=== PATIENT | female | born 1930 | race Caucasian/White ===

== ENCOUNTER 2016-05-25 15:53 | Inpatient (IN) | payer MEDICARE ==
[~2016-05-25] VITALS: Ht 165.1 cm; Wt 69.7 kg
[~2016-05-25 15:53] MED LIST: AMLO2.5T PO; ASCO-294 PO; ASPI-973 PO; ATEN50TA PO; HYDR-4003 PO; VIT1CAPS8 PO
[2016-05-25 15:58] VITALS: BP 123/54; PULSE 108; RESP 20; O2SAT 98
--- NOTE | 2016-05-25 16:33 | DRSVH ---
PROCEDURE: X-RAY CHEST ONE VIEW, PORTABLE ([id number]) INDICATIONS: cp TECHNIQUE: One view of the chest was acquired. COMPARISON: 05/24/[address] chest FINDINGS: Surgical changes and devices: Permanent pacemaker with 2 right atrial and 2 RV leads. Lungs and pleura: Small left pleural effusions, no pneumothorax. Lungs are clear. Mediastinum: Mediastinal contours appear normal. Moderate hiatal hernia. Heart size is normal. Aorti c calcifications. Bones and chest wall: No suspicious bony lesions. Minimally displaced left rib fractures on CT are n ot visualized. Overlying soft tissues appear unremarkable, and no subcutaneous emphysema.. IMPRESSION: 1. Small left pleural effusion, probably related to left-sided rib fractures. No pneumothorax seen. 2. Moderate hiatal hernia. 3. Status post pacemaker. Dictated by: Gerardo Leigh M.D. on 05/25/2016 at 16:26 Approved by: Gerardo Leigh M.D. on 05/25/2016 at 16:31
[2016-05-25 17:03] LABS: BASOPHILS % (AUTO) 0 % (0-3); EOSINOPHILS % (AUTO) 1 % (0-5); MONOCYTES % (AUTO) 10 % (4-12); Mean Corpuscular Hemoglobin 18.5 pg (27.0-35.0); Mean Corpuscular Volume 70.4 fL (81-100); NEUTROPHILS % (AUTO) 77 % (40-74); Platelet Count 415 bil/L (150-400)
[2016-05-25 17:07] LABS: TROPONIN T < 0.010 ug/L (0.0-0.011)
[2016-05-25 17:15] LABS: Magnesium 2.2 mg/dL (1.6-2.6)
--- NOTE | 2016-05-25 17:30 | ED.REPORT ---
HPI-General Illness Date of Service May 25, 2016 ED Provider: Pamela Ferrer MD This is an 85 year old female with a history of atrial fibrillation, GI bleed, hypertension presenting to the emergency department due to progressively worsening shortness of breath that began one year ago. Associated symptoms include chest pain, malaise, and lightheadedness and dizziness with minimal exertion. Pt was called today from Dr. Billings's office, informed of low blood count, and was told to visit the ED. She reports a few episodes of black stools but did not have bowel movement today. Denies diarrhea, constipation, vomiting, nausea, headache, or abdominal pain at this time. Pt taking 325 mg ASA daily Nursing Notes Stated Complaint: CHEST PAIN, SHORTNESS OF BREATH Chief Complaint: Chest Pain Nursing Notes Reviewed: Yes Allergies: Coded Allergies: hydrochlorothiazide (Verified Allergy, Unknown, 05/25/16) carvedilol (Verified Adverse Reaction, Severe, pt unable to recall r-n, ) warfarin (Verified Adverse Reaction, Severe, burning rash, 05/24/15) Scheduled Ascorbate Calcium (Vitamin C) 500 Mg Tablet 500 MG PO DAILY Aspirin (Aspirin) 325 Mg Tablet 325 MG PO DAILY Atenolol (Atenolol) 50 Mg Tablet 50 MG PO BID Flecainide Acetate (Flecainide Acetate) 50 Mg Tablet 50 MG PO BID Vit C/Vit E/Lutein/Min/Floyd-3 (Ocuvite Softgel) 1 Each Capsule 1 EACH PO DAILY Scheduled PRN Calcium Carb/Mag Hydrox/Simeth (Antacid Multi-Sym Tab Chew) 1 Each Tab.chew 1 EACH PO DAILY PRN PRN For Dyspepsia or Heartburn General Time Seen by MD: 17:18 Chief Complaint Chest pain Hx Obtained From: Patient Arrived By: Ambulance Sudden in Onset?: Yes Onset Occurred: More than a week ago... (>6 months) Symptom Duration: Since onset Severity: Current: Mild Pertinent Negative: Pt denies other symptoms Recent Healthcare: No recent hospitalization, Recent doctor visit Similar Sx Previous: No Past Medical History Past Medical History Notes: Upper endoscopy in 03/2011 was negative Past Medical History GI bleed back October 2010 w/ EGDgastritis believed to be secondary to aspirin. Chronic paroxysmal atrial fibrillation, has a pacemaker, DDR, that was placed in October 2010. She is not on Coumadin because she is intolerant to it. On ASA therapy hiatal hernia. h/o Tachybrady syndrome Reports: Hypertension Past Surgical History Pacemaker Status post lead replacement of atrial and ventricular leads 11/2014- DEVICE: The existing pacemaker was a [employer] model UT9709. The new atrial lead was a [employer] model 2088TC/46, serial #[id number] Smoking History Never Smoker Ambulatory Status Independent Review of Systems no recent iron or peptobismol (has taken maalox) Full Review of Systems Constitutional: Denies: Chills, Fever Respiratory: Reports: Shortness of breath Cardiovascular: Reports: Chest pain GI: Denies: Abdominal pain, Constipation, Diarrhea, Nausea, Vomiting Female: Denies: Dysuria Neurologic: Reports: Dizziness, Lightheaded, Denies: Headache Complete sys rev & neg: except as marked. Physical Exam Vital Signs Vital Signs Date Time Temp Pulse Resp B/P Pulse Ox O2 Delivery O2 Flow Rate FiO2 05/25/16 15:58 37 108 20 123/54 98 Room Air Initial VS: Reviewed Head / Eyes: Atraumatic, Normocephalic, PERRL ENT: Mucous membranes moist, Conjunctiva normal, No scleral icterus Neck: Supple, Non-tender, Full range of motion Abdomen / GI: Soft, Non-tender, No guarding, No rebound, No distention Extremities: Vascular intact, Neuro intact, No swelling, No tenderness Neurologic: Alert, Oriented, Nonfocal Psychiatric: Mood/affect normal, Behavior normal, Normal thought content General/Constitutional: Awake, Alert Appearance / Presentation: Positive: Pale Respiratory / Chest: Breath sounds = bilat, No wheezing Sats drop to 82% while talking even on 3 liters O2 Cardiovascular: Regular rhythm, Heart sounds NL, No gallop, No murmurs Heart Rate / Rhythm: Positive: Tachycardia Rectum / Perineum: No gross blood, No hemorrhoids weakly guaiac positive with brown stool Interpretation & Diagnostics Lab Results Interpretation Result Diagram: 05/25/16 1600 05/25/16 1600 Test 05/25/16 16:00 White Blood Count 8.0th/mm3 (3.8-10.1) Red Blood Count 2.87mil/mm3 (3.90-5.20) Hemoglobin 5.3g/dL (12.0-15.6) Hematocrit 20.2% (35.0-46.0) Mean Corpuscular Volume 70.4fL (81-100) Mean Corpuscular Hemoglobin 18.5pg (27.0-35.0) Mean Corpuscular Hemoglobin Concent 26.2% (32.0-37.0) Red Cell Distribution Width 20.0% (12.3-15.4) Platelet Count 415bil/L (150-400) Neutrophils (%) (Auto) 77% (40-74) Lymphocytes (%) (Auto) 12% (14-46) Monocytes (%) (Auto) 10% (4-12) Eosinophils (%) (Auto) 1% (0-5) Basophils (%) (Auto) 0% (0-3) Hold Purple Top Tube Received (Received) Hold Blue Top Tube Received (Received) Sodium Level 137mEq/L (134-144) Potassium Level 4.2mEq/L (3.5-5.2) Chloride Level 101mEq/L (97-108) Carbon Dioxide Level 21mmol/L (18-29) Blood Urea Nitrogen 25mg/dL (8-27) Creatinine 1.26mg/dL (0.57-1.00) Estimat Glomerular Filtration Rate 58mL/min (>59) Glucose Level 167mg/dL (60-99) Calcium Level 8.6mg/dL (8.5-10.1) Magnesium Level 2.2mg/dL (1.6-2.6) Total Bilirubin 0.9mg/dL (0.0-1.2) Aspartate Amino Transf (AST/SGOT) 22U/L (0-50) Alanine Aminotransferase (ALT/SGPT) 11U/L (0-32) Alkaline Phosphatase 44U/L (25-165) Troponin T < 0.010ug/L (0.0-0.011) Total Protein 6.3g/dL (6.4-8.4) Albumin 4.0g/dL (3.4-5.0) Hold [place] Top Tube Received (Received) Hold Fallon Top Tube Received (Received) ECG Interpretation Time: 16:40 Interpreted by: ED physician Abnormal Rate: Rate, 100 (with intraventricular conductoin delay and left axis deviation) Rhythm / Conduction: Atrial fibrillation (repolarization abnormailities. NO acute ischemia) X-Ray Chest Interpretation Chest Xray Interpretation: IMPRESSION: 1. Small left pleural effusion, probably related to left-sided rib fractures. No pneumothorax seen. 2. Moderate hiatal hernia. 3. Status post pacemaker. Dictated by: Gerardo Leigh M.D. on 05/25/2016 at 16:26 Approved by: Gerardo Leigh M.D. on 05/25/2016 at 16:31 Re-Eval/Medical Decision Consultation #1: Referral / Consult Name: Ahmet Schneider MD Consulted With: Hospitalist Call Returned at: 18:00 Chief Internal Auditor: Accepts admit Consultation #2: Call Returned at: 18:12 Note: Spoke with LUIS FERNANDO Whitney. Will consult in the am. Counseled Regarding: Diagnosis, Lab results, Need for follow-up, Need for admission Discharge & Departure Primary Impression: Anemia due to blood loss, acute Additional Impressions: Dyspnea Dyspnea type: unspecified Qualified Code: R06.00 - Dyspnea, unspecified Lower extremity edema Laterality: bilateral Qualified Code: R60.0 - Localized edema Disposition: ADMITTED TO HOSPITAL Discharge Condition All VS Reviewed: Yes Condition: Stable Referrals: Brittani Billings MD (PCP) Scribe Attestation Portions of this note were transcribed by Beverley Gallego. I, Dr. Ferrer personally performed the history, physical exam and medical decision-making; I reviewed and confirmed the accuracy of the information in the transcribed note. Signed by: richard Marks. 05/25/2016, 18:00. Pamela Ferrer MD May 25, 2016 17:30 BEVERLEY GALLEGO May 25, 2016 17:37
[2016-05-25] MEDS ORDERED: Pantoprazole 4 mg/mL 10 mL Inj IVPUSH ONE (18:00)
[2016-05-25] MEDS ORDERED: FLC50T PO (19:11)
[2016-05-25] MEDS ORDERED: ASPI325T32 PO (19:11)
[2016-05-25] MEDS ORDERED: CALC-866 PO (19:11)
[2016-05-25] MEDS ORDERED: Ondansetron 2 mg/mL 2 mL Inj IVPUSH PRN (19:55)
[2016-05-25] MEDS ORDERED: Alum-Mag Hydrox-Simeth 30 mL Suspension PO PRN (19:55)
[2016-05-25 19:57] VITALS: BP 139/63; PULSE 106; RESP 20
[2016-05-25 20:29] VITALS: PULSE 102
[2016-05-25] MEDS ORDERED: Furosemide 10 mg/mL 4 mL Inj IVPUSH ONE (20:30)
--- NOTE | 2016-05-25 20:42 | PCM.HPMED ---
Subjective Date of Service May 25, 2016 Primary Provider: Admitting Physician: Ahmet Schneider MD Primary Care Physician: Brittani Billings MD Attending Physician: Ahmet Schneider MD History of Present Illness: This is an 85 year who was sent out to the emergency room by primary care doctor due to severe anemia. Patient has been having shortness of breath for many medication and feeling weak. She also reported melena or less per day or so. Lab test done at her primary care doctor show severe anemia. In the ED her hemoglobin was 5.8. She has a past medical history of hypertension, atrial fibrillation, hypertension. , Denies diarrhea, constipation, vomiting, nausea, headache, or abdominal pain at this time. 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 She was put on 325 mg of Aspirin daily recently Review of Systems: Review of system is pertinent for shortness of breath, weakness, melena as described above in history of present illness otherwise a comprehensive review x 12 points is negative Allergies Coded Allergies: hydrochlorothiazide (Verified Allergy, Unknown, 05/25/16) carvedilol (Verified Adverse Reaction, Severe, pt unable to recall r-n, ) warfarin (Verified Adverse Reaction, Severe, burning rash, 05/24/15) Home Medications Scheduled Ascorbate Calcium (Vitamin C) 500 Mg Tablet 500 MG PO DAILY Aspirin (Aspirin) 325 Mg Tablet 325 MG PO DAILY Atenolol (Atenolol) 50 Mg Tablet 50 MG PO BID Flecainide Acetate (Flecainide Acetate) 50 Mg Tablet 50 MG PO BID Vit C/Vit E/Lutein/Min/Polaris-3 (Ocuvite Softgel) 1 Each Capsule 1 EACH PO DAILY Scheduled PRN Calcium Carb/Mag Hydrox/Simeth (Antacid Multi-Sym Tab Chew) 1 Each Tab.chew 1 EACH PO DAILY PRN PRN For Dyspepsia or Heartburn PMH Hypertension, Atrial fibrillation, Tachybradycardia syndrome, GI bleed Surgical History Pacemaker Status post lead replacement of atrial and ventricular leads 11/2014- DEVICE: The existing pacemaker was a [employer] model TB8234. The new atrial lead was a [employer] model 2088TC/46, serial #[id number] Family History Family history reviewed and is noncontributory to the present illness Social History Hx Alcohol Use: No Hx Substance Use: No Hx Tobacco Use: No Smoking Status: Never Smoker Living Arrangement: with Family (patient lives with her son) Exam Vital Signs Vital Sign - Last Date Time Temp Pulse Resp B/P Pulse Ox O2 Delivery O2 Flow Rate FiO2 05/25/16 19:57 37.1 106 20 139/63 05/25/16 15:58 98 Room Air Exam General/Constitutional : Well-nourished elderly female, in bed comfortably. Very pale HEENT: Atraumatic, Normocephalic, PERRL, sclera is pale and anicteric Mouth : Moist oropharyngeal mucosa, no oral thrush Neck: Supple, Non-tender, Full range of motion Chest: No deformity, normal respiratory effort Lungs: Clear bilaterally, local cortical, no wheezing Heart: S1, S2 irregular rate , no gallop Abdomen / GI: Soft, Non-tender, No guarding, No rebound, No distention Extremities: Vascular intact, Neuro intact, 3+ edema bilaterally Neurologic: Alert, Oriented, Nonfocal Psychiatric: Mood/affect normal, Behavior normal, Normal thought content Lab and Diagnostics Result Diagram: 05/25/16 1600 05/25/16 1600 X-Rays, CTs and MRIs Chest x-ray reviewed : 1. Small left pleural effusion, probably related to left-sided rib fractures. No pneumothorax seen. 2. Moderate hiatal hernia. 3. Status post pacemak Assessment & Plan 1. Acute blood loss anemia 2. Symptomatic anemia 3. GI bleed 4. LE edema Chronic medical issues 1. GI bleed back October 2010 ( EGD : Gastritis due to ASA) 2. Chronic paroxysmal atrial fibrillation, has a pacemaker ( No anticoagulation due to GI bleed) 3 . h/o Tachybrady syndrome 4. Hypertension Admit inpatient for acute GI bleed and symptomatic anemia. Gastroenterological consulted by ER physician. Transfuse 3 units of PRBC. Monitor H&H closely. Bleeding seems to be contained at this time Lasix 40 mg IV after second unit. Start PPI IV. May need repeat endoscopy ( at GI discretion ). Her symptom of melena is likely secondary gastritis again. She was back on daily aspirin recently Patient is full code . Resuscitation Status: CPR: Attempt Resuscitation Time spent 75 minutes Ahmet Schneider MD May 25, 2016 20:42
--- NOTE | 2016-05-25 22:30 | NUR ---
Admit: Pt arrived to room 3010 from ED via stretcher; son at bedside. AOx3, 2L O2, PRBC infusing. Pt c/o mild SOB, no pain or chest pain. Admit complete. Admit RN completed home medication list. Pt offered information on [employer] Directive; pt refused.
[2016-05-25 22:36] VITALS: BP 145/74; PULSE 110; RESP 18; O2SAT 98
[2016-05-25 23:06] VITALS: BP 156/85; PULSE 103; RESP 20
[2016-05-25 23:22] VITALS: BP 154/82; PULSE 101; RESP 18; O2SAT 100
[2016-05-26] VITALS (8 sets, daily range): BP systolic 115–159; BP diastolic 73–96; PULSE 75–117; RESP 17–18; O2SAT 95–99
[2016-05-26 01:45] LABS: BASOPHILS % (AUTO) 0.8 % (0-3); EOSINOPHILS % (AUTO) 1.4 % (0-5); MONOCYTES % (AUTO) 15.1 % (4-12); Mean Corpuscular Volume 74.9 fL (81-100); NEUTROPHILS % (AUTO) 63.6 % (40-74); Platelet Count 294 bil/L (150-400)
--- NOTE | 2016-05-26 06:30 | NUR ---
Uneventful Night: Pt received 2 units PRBC, night MD ordered a CBC after second unit with orders to hold further transfusions if hemiglobin over 7. Hemiglobin resulted at 7.9. Pt has had off/on mild SOB, 2L O2 to RA throughout the night. Pt up most all night, walking in hallway s and room. Pt denied pain and chest pain. Pleasant and cooperative with care.
[2016-05-26 06:40] LABS: BASOPHILS % (AUTO) 0.4 % (0-3); EOSINOPHILS % (AUTO) 1.3 % (0-5); MONOCYTES % (AUTO) 10.7 % (4-12); Mean Corpuscular Hemoglobin 21.7 pg (27.0-35.0); Mean Corpuscular Volume 74.9 fL (81-100); NEUTROPHILS % (AUTO) 72.6 % (40-74); Platelet Count 306 bil/L (150-400)
[2016-05-26] MEDS ORDERED: Pantoprazole 4 mg/mL 10 mL Inj IVPUSH SCH (07:30)
--- NOTE | 2016-05-26 10:42 | PCM.CHPMED ---
Subjective Date of Service: May 26, 2016 Provider requesting consult: Ahmet Schneider MD Primary Physician: Admitting Physician: Ahmet Schneider MD Primary Care Physician: Brittani Billings MD Attending Physician: Ahmet Schneider MD Chief Complaint: Chief Complaint: REASON FOR GI CONSULT: Acute anemia with associated melena in patient with ASA use History of Present Illness: GASTROENTEROLOGY CONSULT NOTE Ms. Verdin is a pleasant 85 year old female with history of HTN, atrial fibrillation on ASA therapy, and history of ASA-induced gastritis, that [facility] for sx of shortness of breath and weakness. Initial laboratory results yielded a Hb 5.3, Hct 20.2. GI was consulted to further evaluate her etiology of anemia. She is currently s/p 2U pRBC. Patient states that she currently feels well, and that her initial symptoms have resolved. She shares that her initial symptoms included significant shortness of breath, bilateral LE edema, and weakness. She states that she was unable to walk across the room at time of admission. She states that she had an episode of similar with syncope approximately one year ago, but she is unsure what the etiology was. She has been on ASA 325mg therapy for 'years,' and says that she is 'allergic' to coumadin and develops diffuse, extreme urticaria. She denies any history of GI bleeding, denies any history of EGD or colonoscopy, and denies any history of anemia. She is unaware of any adverse effects ASA has had on her. Denies any personal or family history of GI issues, including IBD, celiac, colon cancer, or ulcerations. 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 Denies any recent nausea, vomiting, dysphagia, constipation, diarrhea, abdominal pain, cough, episodes of syncope, acute vision changes, melena, BRBPR. Does admit to one dark stool prior to admission. States dark stools have resolved. Last BM this morning, reported as brown and firm without evidence of blood or tarry consistency. She states that she does not have a PCP, as they retired, and her only physician involved with her care is Dr. Billings, cardiology. History of endoscopy per [facility]: - 2010: EGD- Nonobstructing Schatzki's ring at GE junction, large incarcerated hiatal hernia without evidence gastric ulcerations; mild diffuse gastritis noted ; Biopsies NEGATIVE for H pylori - 2010: Colonoscopy- moderate diverticulosis - 2012: EGD- no source bleeding identified GI was consulted to evaluate etiology of anemia. Review of Systems: Complete ROS obtained; pertinent positives and negatives as noted in HPI PMH Past Medical History Patient recalls history of atrial fibrillation and tachybrady s/p pacer. Does not recall history of EGD/gastritis Obtained from chart review: 1. GI bleed back October 2010 ( EGD : Gastritis due to ASA) 2. Chronic paroxysmal atrial fibrillation, has a pacemaker ( No anticoagulation due to GI bleed) 3 . h/o Tachybrady syndrome 4. Hypertension Surgical History Pacemaker Status post lead replacement of atrial and ventricular leads 11/2014- DEVICE: The existing pacemaker was a [employer] model JQ1312. The new atrial lead was a [employer] model 2088TC/46, serial #[id number] Allergies: Coded Allergies: hydrochlorothiazide (Verified Allergy, Unknown, 05/26/16) carvedilol (Verified Adverse Reaction, Severe, pt unable to recall r-n, ) warfarin (Verified Adverse Reaction, Severe, burning rash, 05/26/16) Social History Hx Alcohol Use: NoHx Substance Use: NoHx Tobacco Use: No Smoking Status: Never Smoker Living Arrangement: with Family (patient lives with her son) Exam Vital Signs Vital Sign - Last Date Time Temp Pulse Resp B/P Pulse Ox O2 Delivery O2 Flow Rate FiO2 05/26/16 05:06 36.7 75 18 159/79 99 Room Air Intake and Output 05/25/16 05/25/16 05/26/16 Cumulative From/Thru 15:00 23:00 07:00 05/25/16 15:58 - 05/26/16 06:51 Intake Total 450 ml 1203 ml 1653 ml Output Total 625 ml 625 ml Balance 450 ml 578 ml 1028 ml Intake Oral 0 ml 0 ml IV Total 50 ml 853 ml 903 ml Packed Cells 400 ml 350 ml 750 ml Output Urine Total 625 ml 625 ml General: Alert, Oriented X3, Cooperative, No Acute Distress Eyes: EOMI, Scleral Anicteric Nose: Mucous Membr Moist/Dupree Mouth: Mucous Membr Moist/Dupree Chest & Lungs: Auscultation (clear bilaterally with adequate air flow all lewis), No adventitious breath sounds Cardiovascular: Other (irregularly irregular) Abdomen: Non-tender, Non-distended, Benign, Soft Musculoskeletal: Normal Range of Motion, Other (able to transition from seated to standing without assistance; mobilized within room well) Extremities: Warm, Edema (moderate- bilateral lower extremities from dorsum to ankle) Neurological: Grossly Neurologically Intact, Normal Speech (without slur), Strength Normal 4/4 ext Additional Information: Psych: Appropriate mood, affect, and responses to questioning; limited insight and judgment as patient cannot recall some details of medical history Lab and Diagnostics Result Diagram: 05/26/1660905/26/16609 Assessment & Plan Assessment GASTROENTEROLOGY CONSULT NOTE Ms. Verdin is a pleasant 85 year old female with history of HTN, atrial fibrillation on ASA therapy, and history of ASA-induced gastritis, that [facility] her [facility] for sx of shortness of breath and weakness. Initial laboratory results yielded a Hb 5.3, Hct 20.2. GI was consulted to further evaluate her etiology of anemia. Assessments - Acute anemia secondary to suspected GI bleed s/p 2U pRBC - History of ASA use Plan - Continue pantoprazole 40mg IV BIDAC - Avoidance of NSAIDs, ASA - EGD and colonoscopy tentative 05/27 - Clear diet at this time - GoLytely tonight - NPO midnight - Will need to evaluate anticoagulation options/discontinuance with risks and benefits discussion; will defer to primary team and/or cardiology Thank you for this consult, we will happily follow along at this time. Please do not hesitate to contact us with any questions or concerns. Total time: 60 minutes Problems: Resuscitation Status: CPR: Attempt Resuscitation Attending Statement agree with outstanding assessment and plan above. Joyce Pappas DO May 26, 2016 08:50 Ahmet Mendoza MD May 26, 2016 14:43
--- NOTE | 2016-05-26 11:17 | NUR ---
Social Work-initial assessment: Data:See initial assessment. Pt is a 85 y/o female who was admitted on 05/25/16 for acute anemia per H&P. Pt's insurance is [employer] and PCP is Brittani Billings MD. EMR Reviewed. Pt's readmission score is 1. HARSH met with pt and son Efe [phone] to discuss discharge planning, SW role explained. Pt is alert and oriented x3. Pt resides at home with her son in [place] where she remains independent with ADLs. Pt uses a fww at baseline and occasionally drives. Pt has no HH or SNF history. Pt has no secretary administrative assistant care or VA benefits. SW discussed DPOA/ advanced directive, pt confirms that she has not done this and is not interested in completing at this time. Per RN notes, pt has been up independent in the hallways. Son confirms he is home with pt all the time. Pt has questions and concerns about procedures getting coverage pt insurance. HARSH spoke with UR RN who confirms pt's insurance should cover, SW updated pt and son, both agreeable. Pt's son to provide transport home at discharge. SW provided phone number and plan on white board in room. No anticipated discharge needs. SW will continue to follow if needs arise. Assessment:Pt who is independent at baseline. Plan:Pt to discharge home with son when medically stable via POV. No anticipated discharge needs. SW will continue to follow if needs arise. BLU Rios Addendum: 05/26/16 at 1122 by SHRAVAN CARRILLO Amended: Links added.
--- NOTE | 2016-05-26 15:17 | PCM.PNMED ---
Subjective Date of Service May 26, 2016 Subjective Patient has no new complaints today. She has been ambulating in the hallway. She states that she does not have any blood in her stool today. She has no fever, no chills, no sweats and no abdominal pain. Exam Vital Signs Vital Sign - Last Date Time Temp Pulse Resp B/P Pulse Ox O2 Delivery O2 Flow Rate FiO2 05/26/16 13:25 36.9 114 18 131/73 95 Room Air 05/26/16 05:06 Intake and Output 05/25/16 05/25/16 05/26/16 Cumulative From/Thru 15:00 23:00 07:00 05/25/16 15:58 - 05/26/16 06:51 Intake Total 450 ml 1203 ml 1653 ml Output Total 625 ml 625 ml Balance 450 ml 578 ml 1028 ml Intake Oral 0 ml 0 ml IV Total 50 ml 853 ml 903 ml Packed Cells 400 ml 350 ml 750 ml Output Urine Total 625 ml 625 ml Exam General: Patient is in no apparent distress. He is very anxious as to whether her insurance will cover her hospitalization and any procedures associated with it. HEENT: Head is atraumatic and normocephalic. Eyes: Pupils are equally round and reactive to light and accommodation. Extraocular muscles are intact. Sclera are white, anicteric. Subconjunctival mucosa is pale. Ears and nose are unremarkable. Oropharynx: There is no mucosal lesions, there is no thrush, there is no pharyngitis. There is some mucosal pallor Neck: Is supple, there are no nodes, or masses or tenderness. Chest: Is clear to auscultation and percussion. There are no rales, rhonchi, wheezes or rubs. Heart: Rate, rhythm is regular. There is no murmur, rub or gallop. Abdomen: Good bowel sounds are present. Abdomen is soft, nontender, no organomegaly or masses were appreciated. Extremities: Are symmetrical and well perfused. There is no edema, there is no cellulitis, no rash. Neurologic: There are no focal neurological deficits. Cranial nerves II through XII are intact. There are no sensory or motor deficits. However, in discussing patient's insurance coverage we went around in circles and she did not seem to comprehend that Medicare and/or supplement [facility] would be providing coverage for her hospitalization due to the severity of her illness. Psychiatric: Patients mood is calm and shows no sign of agitation. Genital: Deferred Rectal: Deferred Lab and Diagnostics Result Diagram: 05/26/16 0610 05/26/1610 X-Rays, CTs and MRIs PROCEDURE: X-RAY CHEST ONE VIEW, PORTABLE ([id number]) INDICATIONS: cp TECHNIQUE: One view of the chest was acquired. COMPARISON: 05/24/[address] chest FINDINGS: Surgical changes and devices: Permanent pacemaker with 2 right atrial and 2 RV leads. Lungs and pleura: Small left pleural effusions, no pneumothorax. Lungs are clear. Mediastinum: Mediastinal contours appear normal. Moderate hiatal hernia. Heart size is normal. Aortic calcifications. Bones and chest wall: No suspicious bony lesions. Minimally displaced left rib fractures on CT are not visualized. Overlying soft tissues appear unremarkable, and no subcutaneous emphysema.. IMPRESSION: 1. Small left pleural effusion, probably related to left-sided rib fractures. No pneumothorax seen. 2. Moderate hiatal hernia. 3. Status post pacemaker. Dictated by: Gerardo Leigh M.D. on 05/25/2016 at 16:26 Approved by: Gerardo Leigh M.D. on 05/25/2016 at 16:31 Assessment & Plan This is an 85 year old female with a history of atrial fibrillation, GI bleed, hypertension presenting to the emergency department due to progressively worsening shortness of breath that began one year ago. Associated symptoms include chest pain, malaise, and lightheadedness and dizziness with minimal exertion. Pt was called to [facility] from Dr. Billings's office, informed of low blood count, and was told to visit the ED. the patient reported a few episodes of black stools but did not have bowel movement the day of admission. The patient denied diarrhea, constipation, vomiting, nausea, headache, or abdominal pain at this time. Pt has been taking 325 mg ASA daily. The patient was admitted to the hospital service for further evaluation and treatment. # Acute blood loss anemia secondary to GI bleeding which had become symptomatic - Appreciate GI consult by Dr. Mendoza - Plan is for patient to have an endoscopy and colonoscopy in a.m. I have discussed this with patient at length and came back to the room to discuss it with the patient and her son Efe. Efe is in agreement that the patient should proceed with these studies. - Patient has been started on Protonix will increase to 40 mg IV twice a day as recommended by Dr. Mendoza - She was transfused 2 units of packed red blood cells - We will continue monitor blood counts closely. - Patient has a history of a GI bleed back in October 2010 ( EGD : Gastritis due to ASA) - History of endoscopy per [facility]: - 2010: EGD- Nonobstructing Schatzki's ring at GE junction, large incarcerated hiatal hernia without evidence gastric ulcerations; mild diffuse gastritis noted; Biopsies NEGATIVE for H pylori - 2010: Colonoscopy- moderate diverticulosis - 2012: EGD- no source bleeding identified # Chronic paroxysmal atrial fibrillation - Patient has a pacemaker placed she states that she has 4 wires now is to previous wires were causing electrical shocks and she had placement of 2 new wires. - Patient has a history of GI bleeding and was not on any anticoagulation until recently when she was placed on aspirin. - History of tachybradycardia syndrome - We will hold all anticoagulation at this time due to GI bleed # Hypertension - Controlled at present time off amlodipine discontinued yesterday due to low blood pressure. - We will continue to monitor closely at this time # Lower extremity edema - This is likely due to third spacing from low intravascular oncotic pressure due to anemia - However, will check echocardiogram to rule out evidence of congestive heart failure - Lasix has been ordered 1 yesterday after second unit of blood was transfused. Will into new to monitor Disposition: Patient will likely be hospitalized for another 48 hours for evaluation and management of the above problems. Pain Evaluation: Adequate Pain Control GI Prophylaxis: Proton Pump Inhibitor VTE Prophylaxis: Other (The patient is ambulating regularly and anticoagulation is contraindicated this time due to the GI bleeding.) Resuscitation Status: CPR: Attempt Resuscitation Anthony Shields MD May 26, 2016 15:17 GI Prophylaxis: Proton Pump Inhibitor VTE Prophylaxis: Other (The patient is ambulating regularly and anticoagulation is contraindicated this time due to the GI bleeding.) Resuscitation Status: CPR: Attempt Resuscitation Anthony Shields MD May 26, 2016 15:17
[2016-05-26] MEDS ORDERED: PEG/Electrolytes 4,000 mL Solution PO ONE (16:00)
--- NOTE | 2016-05-26 16:53 | NUR ---
GI Suspected GI bleed, GI consult, plan for upper/lower scopes in AM, diet clears/no reds, bowel prep tonight, care notes on procedures given, consent in chart.
[2016-05-26] MEDS: Pantoprazole 4 mg/mL 10 mL Inj IVPUSH SCH (21:12)
--- NOTE | 2016-05-26 22:32 | NUR ---
Pain/sleep Patient reporting pain from "ribs that I broke a year ago when I fell, I guess they have never healed". Patient also very restless, walking hallway with FWW, "trying to wear myself out so I can sleep".
[2016-05-27] VITALS (10 sets, daily range): BP systolic 106–158; BP diastolic 57–88; PULSE 109–136; RESP 14–20; O2SAT 96–100
[2016-05-27] MEDS ORDERED: Lactated Ringer's 1,000 ML IV ONE (06:00)
[2016-05-27 06:33] LABS: BASOPHILS % (AUTO) 0.3 % (0-3); EOSINOPHILS % (AUTO) 0.9 % (0-5); MONOCYTES % (AUTO) 9.9 % (4-12); Mean Corpuscular Hemoglobin 21.5 pg (27.0-35.0); Mean Corpuscular Volume 74.9 fL (81-100); NEUTROPHILS % (AUTO) 76.5 % (40-74); Platelet Count 287 bil/L (150-400)
[2016-05-27 06:52] LABS: Magnesium 1.9 mg/dL (1.6-2.6)
[2016-05-27 08:42] LABS: APPEARANCE,URINE HAZY (CLEAR,HAZY); COLOR,URINE YELLOW (YELLOW)
[2016-05-27 08:43] LABS: OCCULT BLOOD,URINE NEGATIVE (NEGATIVE); UROBILINOGEN,URINE NORMAL (NORMAL)
--- NOTE | 2016-05-27 09:07 | NUR ---
JESUSITA: Patient refused to sign JESUSITA, she informed me she has read all the papers she has a copy and that she already has a signature on it. She is not comfortable with signing a lot of things.
[2016-05-27] MEDS: Pantoprazole 4 mg/mL 10 mL Inj IVPUSH SCH (09:45)
--- NOTE | 2016-05-27 12:36 | DRSVH ---
[facility] [address] [place] [address] Echocardiogram Report Name: NANCY CASSIDY Date : 05/27/2016 Height: 65 in Hospital Exam Location: [facility] Weight: 154 lb Gender: Other BSA: 1.8 m2 : 1930 Age: 85 yrs BP: 139/88 mmHg Reason For Study: Edema Ordering Physician: Performed By: [facility] Interpretation Summary The left ventricle is normal in size.The ejection fraction is estimated to be 55-60%. The right ventricle is mild to moderately dilated. There is a pacemaker lead in the right ventricle. Right ventricular systolic function is mild to moderately reduced. There is moderate tricuspid regurgitation. The right ventricular systolic pressure is estimated at 66 mmHg assuming a right atrial pressure of 15 mm Hg. There is severe pulmonary hypertension. The patient was in atrial fibrillation with heart rates between 78-133 bpm during the exam. Procedure: A two-dimensional transthoracic echocardiogram with color flow and Doppler was performed. The study quality was technically adequate. Comparison is made with the echocardiogram of 10/13/09. The patient was in atrial fibrillation with heart rates between 78-133 bpm during the exam. Left Ventricle: The left ventricle is normal in size. Proximal septal thickening is noted. There is no echo evidence for significant left ventricular outflow tract obstruction. There is no thrombus. The ejection fraction is estimated to be 55-60%. There is mid inferoseptal wall hypokinesis. There is mid anteroseptal wall hypokinesis. Diastolic function could not be accurately assessed due to atrial fibrillation. Right Ventricle: The right ventricle is mild to moderately dilated. There is a pacemaker lead in the right ventricle. The right ventricle appears to be hypertrophied. Right ventricular systolic function is mild to moderately reduced. Atria: The left atrium is severely dilated. The right atrium is moderately dilated. There is a catheter/pacemaker lead seen in the right atrium. The interatrial septum is intact with no evidence for an atrial septal defect. The thickening of interatrial septum suggests lipomatous hypertrophy. Mitral Valve: There is mild mitral annular calcification. The mitral valve leaflets are slightly calcified. There is trace mitral regurgitation. Aortic Valve: The aortic valve is trileaflet. The aortic valve opens well. The aortic valve is slightly calcified. There is no aortic valve stenosis. No aortic regurgitation is present. Tricuspid Valve: The tricuspid annulus is dilated. There is moderate tricuspid regurgitation. The right ventricular systolic pressure is estimated at 66 mmHg assuming a right atrial pressure of 15 mm Hg. There is severe pulmonary hypertension. Pulmonic Valve: The pulmonic valve is not well seen, but is grossly normal. There is mild pulmonic regurgitation. Great Vessels: The aortic root is normal size. The dimensions of the ascending aorta are normal. The aortic arch is normal in size. The pulmonary is not well visualized. The IVC is dilated (diameter is greater than 2.1 cm) and it collapses less than 50% with a sniff. This suggests a high right atrial pressure of 15 mm Hg. Pericardium/ Pleura There is no pericardial effusion. There is no pleural effusion. MMode/2D Measurements & Calculations LVIDd: 4.5 cm LA dimension: 3.9 cm RA long axis Ao root diam LVIDs: 2.8 cm FS: 36.9 % LA A2 area: 28.5 cm RA area asc Aorta Diam EPSS: 0.71 cm LA A4 area: 30.9 cm IVSd: 0.83 cm LA length (vol) : 16.4 cm Ao Arch Diam (Prox LVPWd: 0.87 cm RA vol Trans): 2.6 cm LA vol: 117.2 ml : 41.8 ml LA vol index RA : 23.6 mm2 IVC diam: 2.3 cm LV zamora. diameter/BSA LV sys. diameter/BSA RVD1 (basal) RVD2 (mid): 5.2 cm (cm/m^2): 2.5 (cm/m^2): 1.6 Doppler Measurements & Calculations Ao V2 max Med Peak E' [place] TR max michoacano MV V2 mean : 160.4 cm/sec : 356.5 cm/sec : 88.1 cm/sec Ao max PG Lat Peak E' [place] TR max PG MV mean PG : 10.3 mmHg : 50.9 mmHg Ao mean PG PA V2 max MV V2 VTI: 24.2 cm : 5.4 mmHg : 90.7 cm/sec PA mean PG PA Accel Time Ao V2 mean PA V2 mean : 107.7 cm/sec : 57.7 cm/sec Ao V2 VTI: 26.9 cm Reading Physician:JOYCE
[2016-05-27] MEDS ORDERED: MeTOProlol 1 mg/mL 5 mL Inj ONE (13:24)
[2016-05-27] MEDS ORDERED: Ketamine 10 mg/mL 20 mL Inj ONE (13:24)
--- NOTE | 2016-05-27 13:48 | NUR ---
Endo Bowel prep last night, NPO this AM. Pt escorted to endo via courtney with son at bedside. Addendum: 05/27/16 at 1606 by CHIQUITA CRUZ RN Return from endo. A&O. Tolerating liquids. No c/o pain.
[2016-05-27] MEDS ORDERED: Ondansetron 2 mg/mL 2 mL Inj IVPUSH PRN (14:00)
[2016-05-27] MEDS ORDERED: Lactated Ringer's 1,000 ML IV SCH (14:00)
[2016-05-27] MEDS ORDERED: MetoCLOpramide 5 mg/mL 2 mL Inj IVPUSH PRN (14:00)
--- NOTE | 2016-05-27 14:00 | PCM.HPANE ---
Patient Data Date of Service: May 27, 2016 Surgeon Admitting Provider:Ahmet Schneider MD Attending Provider:Ahmet Schneider MD Primary Care Physician:Brittani Billings MD Other Provider: Reason for Visit Acute Anemia, Lower Extremity Edema Ht/WT & BMI Height (Feet): 5 Height (Inches): 5.00 Weight (Kilograms): 69.700 Body Mass Index 25.60 Allergies Coded Allergies: hydrochlorothiazide (Verified Allergy, Unknown, 05/26/16) carvedilol (Verified Adverse Reaction, Severe, pt unable to recall r-n, ) warfarin (Verified Adverse Reaction, Severe, burning rash, 05/26/16) Past Anesthesia History Anesthesia History: Denies:: Abnormal Airway, Difficult Intubation Diabetes History Hx Diabetes?: Yes MRSA MRSA: No Medications Reported Medications Aspirin 325 Mg [id number] Mg PO DAILY #1 BOTTLE 05/25/16 Calcium Carb/Mag Hydrox/Simeth (Antacid Multi-Sym Tab Chew)1 Each Tab.chew1 Each PO DAILY PRN For Dyspepsia or Heartburn 05/25/16 Flecainide Acetate 50 Mg [id number] Mg PO BID 30 Days 05/25/16 Ascorbate Calcium (Vitamin C)500 Mg [id number] Mg PO DAILY 05/24/15 Vit C/Vit E/Lutein/Min/[place]-3 (Ocuvite Softgel)1 Each Capsule1 Each PO DAILY 11/14/14 Atenolol 50 Mg [id number] Mg PO BID 11/14/14 Discontinued Reported Medications Aspirin 81 Mg [id number] Mg PO DAILY 11/14/14 Amlodipine 2.5 Mg Tablet2.5 Mg PO BID 11/14/14 Discontinued Scripts Hydrocodone-Acetaminophen 5-325 mg 1 Each Tablet1 Tablet PO Q4H PRN For Pain # 30 TABLET Ref 0 Prov:Valeriano Crane MD 05/26/15 History History of ENT Problems?: Yes HEENT History: Positive for:: Cataracts (bilateral surgery) Denies:: Abnormal Airway Difficult Intubation Dysphagia Glaucoma Hearing Problem Sinus Problem Hx of Heart Problems?: Yes Cardiovascular History: Positive for:: Atrial Fibrillation Cardiac Surgery (pacemaker) Hypertension Irregular Heartbeat (hx atrial fibrillation, bradycardia,tachy-nikko syndrome) Pacemaker Valvular Heart Disease (severe pulm htn) Denies:: Chest Pain Congestive Heart Failure (denies) Edema Heart Murmur Hx of Respiratory Problem?: No Respiratory History: Positive for:: Dyspnea (current due to HH) Denies:: Asthma COPD Chest Surgery Emphysema Hemoptysis Pneumonia Tuberculosis Hx Neurologic Problems?: No Neurological History: Denies:: Alzheimer's Disease CVA Dementia Dizziness Headaches Parkinson's Disease Seizures Hx of GI Problems?: Yes Gastrointestinal History: Positive for:: Gastroesphageal Reflux Gastrointestinal Bleeding (r/t gastritis) Heartburn Hiatal Hernia Rectal Bleeding (current) Denies:: Diverticulitis Hepatitis Hx of Problems?: Yes Genitourinary History: Positive for:: Urinary Tract Infection Denies:: HX of Hemodialysis Kidney Stones HX of Peritoneal Dialysis: No Female Hx: Denies:: Currently Endometriosis Pelvic Inflammatory Problems with Breasts? Hx Musculoskeletal Problems?: Yes Musculoskeletal History: Positive for:: Back Injury (occasional) Denies:: Joint Replacement Hx of Psycho/Social Problems?: No Psycho Social History: Denies:: Anxiety Bipolar Disorder Hx Depression Suicide Attempt Hx Surgeries?: No (pacer) Hx Any Other Health Problems?: Yes Other History: Positive for:: Hospitalization Denies:: Cancer Thyroid Disease History Blood Transfusions: Positive for:: Accept Blood Products? Blood Transfusions Denies:: Blood Transfuse Reaction Hx Diabetes: Yes Hx Alcohol Use: NoHx Substance Use: No Smoking Status: Never Smoker Have You Smoked inLast 12 mo: No Stop/Bang Treated for Sleep Apnea?: No S-Snoring: Do You Snore Loudly: No T-Tired: feel tired, fatigued: Yes O-Obsered: Observed not breath: No P-Blood Pressure: treated: Yes B- Body Mass Index > 35 kg/m2: No A- Age over 50: Yes N- Neck Large Circumference: No G- Gender Male: No GERRI Total Score: 2 Risk Assessment Category Category 1A: Patient has history of documented sleep apnea, and HAS NOT received any narcotic, sedative or anesthesia administration during this stay. Category 1B: Patient has history of documented sleep apnea, and HAS received any narcotic , sedative or anesthesia administration during this stay Category 2: Patient has SUSPECTED Obstructive Sleep Apnea, and HAS received any narcotic , sedative or anesthesia administration during this stay. Category 3: Patient has SUSPECTED Obstructive Sleep Apnea and HAS NOT received narcotic, sedative or anesthesia administration during this stay. Category 4: Outpatient in Procedural Areas with known sleep apnea or who screen positive for High Risk via the STOP/BANG questionnaire. Exam Exam Vital Signs Vital Signs Date Time Temp Pulse Resp B/P Pulse Ox O2 Delivery O2 Flow Rate FiO2 05/27/16 11:04 122 05/27/16 10:18 36.4 124 20 124/76 98 Room Air 05/27/16 06:16 36.6 110 18 139/88 99 Room Air General Appearance: Alert, Oriented X3, Cooperative HEENT/AIRWAY: MP 3, Neck Movement (OK), Mouth Opening (Small) Lungs: Clear to Percussion, Normal Air Movement, Diminished Heart: Normal S1, Normal S2, Other (tachycardic) Meds/Labs/Diagnostics Admission Meds Current Medications Polyethylene Glycol/ Electrolytes 4000 ml 4,000 ml ONCE ONCE PO Last administered on 05/26/16 16:03; Start 05/26/16 at 16:00; Stop 05/26/16 at 16:12 ; Status DC Lactated Ringer's (Lr) 1,000 ml @ 10 mls/hr Q24H ONCE IV Last administered on 05/27/16 06:19; Start 05/27/16 at 06:00; Stop 05/28/16 at 05:59 Pantoprazole (Protonix Inj) 40 mg BID IVPUSH Last administered on 05/27/16 09: 45; Start 05/26/16 at 20:30 Labs Test 05/25/16 16:00 05/27/16 06:03 05/27/16 07:13 Hold Purple Top Tube Received (Received) Hold Blue Top Tube Received (Received) Troponin T < 0.010ug/L (0.0-0.011) Hold [place] Top Tube Received (Received) Hold [place] Top Tube Received (Received) White Blood Count 8.0th/mm3 (3.8-10.1) Red Blood Count 3.67mil/mm3 (3.90-5.20) Hemoglobin 7.9g/dL (12.0-15.6) Hematocrit 27.5% (35.0-46.0) Mean Corpuscular Volume 74.9fL (81-100) Mean Corpuscular Hemoglobin 21.5pg (27.0-35.0) Mean Corpuscular Hemoglobin Concent 28.7% (32.0-37.0) Red Cell Distribution Width 21.8% (12.3-15.4) Platelet Count 287bil/L (150-400) Neutrophils (%) (Auto) 76.5% (40-74) Lymphocytes (%) (Auto) 12.3% (14-46) Monocytes (%) (Auto) 9.9% (4-12) Eosinophils (%) (Auto) 0.9% (0-5) Basophils (%) (Auto) 0.3% (0-3) Hematology Comments Sodium Level 141mEq/L (134-144) Potassium Level 4.3mEq/L (3.5-5.2) Chloride Level 102mEq/L (97-108) Carbon Dioxide Level 23mmol/L (18-29) Blood Urea Nitrogen 21mg/dL (8-27) Creatinine 1.08mg/dL (0.57-1.00) Estimat Glomerular Filtration Rate 69mL/min (>59) Glucose Level 108mg/dL (60-99) Calcium Level 9.1mg/dL (8.5-10.1) Magnesium Level 1.9mg/dL (1.6-2.6) Total Bilirubin 2.3mg/dL (0.0-1.2) Aspartate Amino Transf (AST/SGOT) 20U/L (0-50) Alanine Aminotransferase (ALT/SGPT) 12U/L (0-32) Alkaline Phosphatase 45U/L (25-165) Pro-B-Type Natriuretic Peptide 3364pg/mL (0-738) Total Protein 6.3g/dL (6.4-8.4) Albumin 4.0g/dL (3.4-5.0) Triglycerides Level 73mg/dL (0-149) Cholesterol Level 107mg/dL (100-199) LDL Cholesterol, Calculated 48.400mg/dL (0-99) VLDL Cholesterol 14.600mg/dL HDL Cholesterol 44mg/dL (>39) Cholesterol/HDL Ratio 2.43 (0.0-4.4) Urine Color Yellow (YELLOW) Urine Appearance Hazy (CLEAR,HAZY) Urine pH 5.0 (5.0-8.0) Urine Specific [place] 1.030 (1.003-1.035) Urine Protein Negativemg/dL (NEG,TRACE) Urine Glucose (UA) Negativemg/dL (NEGATIVE) Urine Ketones Tracemg/dL (NEGATIVE) Urine Occult Blood Negative (NEGATIVE) Urine Nitrite Negative (NEGATIVE) Urine Bilirubin Negative (NEGATIVE) Urine Urobilinogen Normalmg/dL (NORMAL) Urine Leukocyte Esterase Negative (NEGATIVE) Urine RBC 0-2/hpf (0-2) Urine WBC 0-5/hpf (0-5) Urine Epithelial Cells Occasional/hpf (NONE-MOD) Urine Crystals None seen (NONE SEEN) Urine Bacteria Moderate/hpf (NONE-FEW) Urine Hyaline Casts Occasional/lpf (NONE) Urine Granular Casts None seen (NONE SEEN) Urine Waxy Casts None seen (NONE SEEN) Urine Red Blood Cell Casts None seen (NONE SEEN) Urine White Blood Cell Casts None seen (NONE SEEN) Urine Mucus None seen (None Seen) Urine Trichomonas None seen (NONE SEEN) Urine Yeast None (NONE SEEN) Urinalysis Comment None Diagnositcs Echo today with severe pulmonary HTN. Pacemaker recs received. Plan Impression Patient chart reviewed, patient interviewed and anesthestic plan with risks, benefits, and alternatives discussed, and informed consent obtained. NPO Status: > 8 hours ASA Physical Status: ASA3 Severe Disease Anesthetic Plan: MAC Bene/Risks/Altern/Consents: Yes HP Complete Prior to Induction: Yes Other Pt with severe pulmonary hypertension and poorly rate controlled A.Fib. GI bleed. PARQ done with patient regarding risk of sedation, understands and agrees to proceed. Jovany Paulino MD May 27, 2016 13:44
--- NOTE | 2016-05-27 14:52 | PCM.ANEP1 ---
Post Anesthesia Phase 1 PACU Phase 1 Assessment Date of Service: May 27, 2016 Vital Signs Vital Signs Date Time Temp Pulse Resp B/P Pulse Ox O2 Delivery O2 Flow Rate FiO2 05/27/16 14:41 113 14 142/81 99 Nasal Cannula 4 05/27/16 13:51 36.6 122 16 158/84 100 Room Air 05/27/16 11:04 122 05/27/16 10:18 36.4 124 20 124/76 98 Room Air Anesthetic Administered: MAC Level of Alertness: Awake, talking SMITH's with Equal Strength: Yes Pain: No Pain Scale Score: 0 Nausea or Vomiting: No Oxygen Delivery: Nasal Cannula Lungs: Clear to Percussion, Normal Air Movement, Diminished Jovany Paulino MD May 27, 2016 14:52
--- NOTE | 2016-05-27 14:54 | PCM.ANEP2 ---
Post Anesthesia Evaluation ASA/CMS Post Anesthesia Date of Service: May 27, 2016 VS in Patient's Normal Range?: Yes Resp Stable; Airway Patent?: Yes CV Function & Hydration Stable: Yes Mental Status Recovered?: Yes Pain control Satisfactory?: Yes N/V Control Satisfactory?: Yes Jovany Paulino MD May 27, 2016 14:54
--- NOTE | 2016-05-27 15:58 | ENDO ---
[address] [address] ENDOSCOPY PROCEDURE PATIENT: NANCY CASSIDY : 1930 MR#: [id number] ADMIT: 05/25/2016 JOB ID: [id number] DATE OF SERVICE: 05/27/2016 TYPE OF OPERATION: 1. Esophagogastroduodenoscopy with biopsy. 2. Colonoscopy. PREOPERATIVE DIAGNOSIS(ES): 1. Anemia. 2. Rule out gastrointestinal bleed. POSTOPERATIVE DIAGNOSIS(ES): 1. Large hiatal hernia. No Andrey lesions seen. 2. Moderate sigmoid diverticulosis. 3. Small internal hemorrhoids. ANESTHESIA: Monitored anesthesia care. COMPLICATIONS: None. BLOOD LOSS: Minimal. DESCRIPTION OF PROCEDURE: After risks and benefits explained to the patient, informed consent was obtained. After anesthesia administered, upper endoscope was then inserted in the mouth, intubating through the esophagus, stomach, second portion of duodenum. Mucosa carefully examined. After the procedure was done, the scope withdrawn and the procedure terminated. A colonoscope was then inserted from rectum to cecum. Mucosa carefully examined. Prep of the patient was fair. After the procedure was done, the scope withdrawn and the procedure terminated. FINDINGS: Upon inspection of the esophagus, the esophagus was normal without masses, ulcers, or lesions. Z-line located 40 cm from incisors. Upon entering the stomach, the stomach was normal without masses, ulcers, or lesions. Retroflexion showed a large hiatal hernia. Duodenal bulb, first and second portions normal. Biopsies taken at the duodenum. No Andrey lesions were seen on retroflexion. Upon inspection of the anus, no masses, hemorrhoids, ulcers, or fissures that were seen. Throughout the entire examination, there was moderate sigmoid diverticulosis. No evidence of bleeding or polyps were seen. Retroflexion showed small internal hemorrhoids. IMPRESSION: 1. Small internal hemorrhoids. 2. Sigmoid diverticulosis. 3. Large hiatal hernia. RECOMMENDATIONS: 1. Await pathology results. 2. Outpatient small bowel series. 3. Okay to start clear liquid diet. Advance as tolerated. 4. Okay to discharge home from a GI standpoint.
--- NOTE | 2016-05-27 20:10 | PCM.PNMED ---
Subjective Date of Service May 27, 2016 Subjective Patient has no new complaints. She is anxiously awaiting her endoscopy and colonoscopy procedures this afternoon. She has no fever, no sweats no chills no nausea no vomiting no diarrhea no medication no melena or hematemesis that she is aware of. Patient has no other new complaints. Exam Vital Signs Vital Sign - Last Date Time Temp Pulse Resp B/P Pulse Ox O2 Delivery O2 Flow Rate FiO2 05/27/16 18:26 36.8 136 20 129/71 97 Room Air 05/27/16 14:41 4 Intake and Output 05/26/16 05/26/16 05/27/16 Cumulative From/Thru 15:00 23:00 07:00 05/25/16 15:58 - 05/27/16 06:28 Intake Total 800 ml 0 ml 2453 ml Output Total 150 ml 775 ml Balance 650 ml 0 ml 1678 ml Intake Oral 800 ml 0 ml 800 ml IV Total 903 ml Packed Cells 750 ml Output Urine Total 150 ml 775 ml # Voids 1 0 1 # Bowel Movements 1 0 1 Exam General: Patient is in no apparent distress. He is very anxious as to whether her insurance will cover her hospitalization and any procedures associated with it. HEENT: Head is atraumatic and normocephalic. Eyes: Pupils are equally round and reactive to light and accommodation. Extraocular muscles are intact. Sclera are white, anicteric. Subconjunctival mucosa is pale. Ears and nose are unremarkable. Oropharynx: There is no mucosal lesions, there is no thrush, there is no pharyngitis. There is some mucosal pallor Neck: Is supple, there are no nodes, or masses or tenderness. Chest: Is clear to auscultation and percussion. There are no rales, rhonchi, wheezes or rubs. Heart: Rate, rhythm is regular. There is no murmur, rub or gallop. Abdomen: Good bowel sounds are present. Abdomen is soft, nontender, no organomegaly or masses were appreciated. Extremities: Are symmetrical and well perfused. There is no edema, there is no cellulitis, no rash. Neurologic: There are no focal neurological deficits. Cranial nerves II through XII are intact. There are no sensory or motor deficits. Psychiatric: Patients mood is calm and shows no sign of agitation. Genital: Deferred Rectal: Deferred Lab and Diagnostics Result Diagram: 05/27/1660205/27/16602 Microbiology Name: NANCY CASSIDY Kaya Age/Sex: 85/F Attend Dr: Ahmet Schneider MD Acct: [id number] Unit: [id number] Status: ADM IN [place] [facility] [place]05/25/16 Disch: Specimen: [id number] Collected: 05/26/16 Status: COMP Req#: [id number] Received: 05/26/16 Source: STOOL Sp Desc : Subm Dr: Anthony Shields MD Ordered: WFOBT Comments: Collected by Nurse/Unit? Y/N Y Comment: x1 suspected GI bleed Procedure Result Verified Site Microbiology [facility] OCCULT BLOOD IMMUNOCHEM Final 05/26/16 OCCULT BLD IMMUNOCHEMICAL NEGATIVE REFERENCE INTERVAL NEGATIVE X-Rays, CTs and MRIs PROCEDURE: X-RAY CHEST ONE VIEW, PORTABLE ([id number]) INDICATIONS: cp TECHNIQUE: One view of the chest was acquired. COMPARISON: 05/24/[address] chest FINDINGS: Surgical changes and devices: Permanent pacemaker with 2 right atrial and 2 RV leads. Lungs and pleura: Small left pleural effusions, no pneumothorax. Lungs are clear. Mediastinum: Mediastinal contours appear normal. Moderate hiatal hernia. Heart size is normal. Aortic calcifications. Bones and chest wall: No suspicious bony lesions. Minimally displaced left rib fractures on CT are not visualized. Overlying soft tissues appear unremarkable, and no subcutaneous emphysema.. IMPRESSION: 1. Small left pleural effusion, probably related to left-sided rib fractures. No pneumothorax seen. 2. Moderate hiatal hernia. 3. Status post pacemaker. Dictated by: Gerardo Leigh M.D. on 05/25/2016 at 16:26 Approved by: Gerardo Leigh M.D. on 05/25/2016 at 16:31 Cardiac Echo Impressions Echocardiogram Report Name: NANCY CASSIDY Date : 05/27/2016 Height: 65 in Hospital Exam Location: [facility] Weight: 154 lb Gender: Other BSA: 1.8 m2 : 1930 Age: 85 yrs BP: 139/88 mmHg Reason For Study: Edema Ordering Physician: Performed By: [facility] Interpretation Summary The left ventricle is normal in size.The ejection fraction is estimated to be 55-60%. The right ventricle is mild to moderately dilated. There is a pacemaker lead in the right ventricle. Right ventricular systolic function is mild to moderately reduced. There is moderate tricuspid regurgitation. The right ventricular systolic pressure is estimated at 66 mmHg assuming a right atrial pressure of 15 mm Hg. There is severe pulmonary hypertension. The patient was in atrial fibrillation with heart rates between 78-133 bpm during the exam Assessment & Plan This is an 85 year old female with a history of atrial fibrillation, GI bleed, hypertension presenting to the emergency department due to progressively worsening shortness of breath that began one year ago. Associated symptoms include chest pain, malaise, and lightheadedness and dizziness with minimal exertion. Pt was called to [facility] from Dr. Billings's office, informed of low blood count, and was told to visit the ED. the patient reported a few episodes of black stools but did not have bowel movement the day of admission. The patient denied diarrhea, constipation, vomiting, nausea, headache, or abdominal pain at this time. Pt has been taking 325 mg ASA daily. The patient was admitted to the hospital service for further evaluation and treatment. # Acute blood loss anemia secondary to GI bleeding which had become symptomatic - Appreciate GI consult by Dr. Mendoza - Plan is for patient to have an endoscopy and colonoscopy in a.m. I have discussed this with patient at length and came back to the room to discuss it with the patient and her son Efe. Efe is in agreement that the patient should proceed with these studies. - Patient has been started on Protonix will increase to 40 mg IV twice a day as recommended by Dr. Mendoza - She was transfused 2 units of packed red blood cells - We will continue monitor blood counts closely. - Patient has a history of a GI bleed back in October 2010 ( EGD : Gastritis due to ASA) - History of endoscopy per [facility]: - 2010: EGD- Nonobstructing Schatzki's ring at GE junction, large incarcerated hiatal hernia without evidence gastric ulcerations; mild diffuse gastritis noted; Biopsies NEGATIVE for H pylori - 2010: Colonoscopy- moderate diverticulosis - 2012: EGD- no source bleeding identified # Chronic paroxysmal atrial fibrillation - Patient has a pacemaker placed she states that she has 4 wires now is to previous wires were causing electrical shocks and she had placement of 2 new wires. - Patient has a history of GI bleeding and was not on any anticoagulation until recently when she was placed on aspirin. - History of tachybradycardia syndrome - We will hold all anticoagulation at this time due to GI bleed # Hypertension - Controlled at present time off amlodipine discontinued yesterday due to low blood pressure. - We will continue to monitor closely at this time # Lower extremity edema - This is likely due to third spacing from low intravascular oncotic pressure due to anemia - However, will check echocardiogram to rule out evidence of congestive heart failure - Lasix has been ordered 1 yesterday after second unit of blood was transfused. Will into new to monitor Disposition: Patient will likely be hospitalized for another 48 hours for evaluation and management of the above problems. Pain Evaluation: Adequate Pain Control GI Prophylaxis: Proton Pump Inhibitor VTE Prophylaxis: Other (The patient is ambulating regularly and anticoagulation is contraindicated this time due to the GI bleeding.) Resuscitation Status: CPR: Attempt Resuscitation Anthony Shields MD May 27, 2016 20:10
[2016-05-28 01:58] VITALS: BP 127/72; PULSE 120; RESP 20; O2SAT 99
[2016-05-28 06:08] VITALS: PULSE 107
[2016-05-28 06:26] VITALS: BP 123/65; PULSE 130; RESP 18; O2SAT 97
[2016-05-28 07:18] LABS: BASOPHILS % (AUTO) 0.5 % (0-3); EOSINOPHILS % (AUTO) 1.8 % (0-5); MONOCYTES % (AUTO) 12.6 % (4-12); Mean Corpuscular Hemoglobin 21.9 pg (27.0-35.0); Mean Corpuscular Volume 75.6 fL (81-100); Platelet Count 278 bil/L (150-400)
[2016-05-28] MEDS ORDERED: Pantoprazole 20 mg ER24 Tablet PO SCH (07:30)
[2016-05-28 08:00] VITALS: PULSE 109
[2016-05-28 09:04] VITALS: BP 85/55; PULSE 129; RESP 20; O2SAT 98
[2016-05-28] MEDS ORDERED: 0.9% Sodium Chloride 500 ML IV ONE (09:30)
--- NOTE | 2016-05-28 11:03 | PCM.DIMED ---
Discharge Instructions Date of Service May 28, 2016 Dates of Hospitalization May 25, 2016 at 18:59 Discharge Diagnosis Discharge Diagnosis Acute symptomatic blood loss anemia Diet Heart Healthy Activity No restrictions (Patient may resume usual activities gradually as tolerated.) Call your provider Fever or Chills, Shortness of breath, Bleeding, Chest pain, Vomitting, Excessive diarrhea, Weakness (unilateral) Patient Instructions Follow-up Provider: Brittani Billings MD Follow-up with PCP in: 2 weeks Provider: Ahmet Mendoza MD Follow-up in: 2 weeks (Folllow up for biopsy report) Anthony Shields MD May 28, 2016 11:03
[2016-05-28] MEDS ORDERED: PANT20TA2 PO (11:06)
--- NOTE | 2016-05-28 11:32 | NUR ---
Hypotension: BP 85/55. MD celaya. notified. Received order for NS 500ml bolus. NS administration started. Will continue to follow. Addendum: 05/28/16 at 1319 by ALBAN SMALL RN Post 500ml NS bolus, BP 117/95, HR 107.
--- NOTE | 2016-05-28 11:43 | NUR ---
Social Work: Discharge Data: Pt is on day 3 of hospitalization. EMR reviewed. D/C orders are in. No d/c planning needs at this time. MANAGEMENT REP will continue to follow if needs arise. Assessment: Pt who is independent at baseline. Plan: Pt will d/c home via POV with son today. No d/c planning needs at this time. MANAGEMENT REP will continue to follow if needs arise. BLU Byrne
[2016-05-28 12:58] VITALS: BP 117/75; PULSE 107; O2SAT 98
--- NOTE | 2016-05-28 13:19 | NUR ---
Discharge: Patient discharged to home @ approx 1320. IV d/c'd' intact, telemetry removed, surveillance monitor notified. Personal belongings sent home with patient. Reviewed new prescription, home medication list, d/c instructions, and follow up appointments. Verbalized understanding. Escorted to main entrance via wheelchair accompanied by INTERMEDIATE FRAME TENDER.
--- NOTE | 2016-05-29 00:36 | PCM.DC.MED ---
Discharge Summary Date of Service May 28, 2016 Dates of Hospitalization Date of Hospital Admission May 25, 2016 at 18:59 Date of Discharge: May 28, 2016 Providers: Admitting Physician: Ahmet Schneider MD Primary Care Physician: Brittani Billings MD Attending Physician: Ahmet Schneider MD Diagnosis at Time of Discharge Diagnosis at Time of Discharge Acute symptomatic blood loss anemia Consultations Dr. Mendoza of gastroenterology Procedures XRay, CTs & MRIs PROCEDURE: X-RAY CHEST ONE VIEW, PORTABLE ([id number]) INDICATIONS: cp TECHNIQUE: One view of the chest was acquired. COMPARISON: 05/24/[address] chest FINDINGS: Surgical changes and devices: Permanent pacemaker with 2 right atrial and 2 RV leads. Lungs and pleura: Small left pleural effusions, no pneumothorax. Lungs are clear. Mediastinum: Mediastinal contours appear normal. Moderate hiatal hernia. Heart size is normal. Aortic calcifications. Bones and chest wall: No suspicious bony lesions. Minimally displaced left rib fractures on CT are not visualized. Overlying soft tissues appear unremarkable, and no subcutaneous emphysema.. IMPRESSION: 1. Small left pleural effusion, probably related to left-sided rib fractures. No pneumothorax seen. 2. Moderate hiatal hernia. 3. Status post pacemaker. Dictated by: Gerardo Leigh M.D. on 05/25/2016 at 16:26 Approved by: Gerardo Leigh M.D. on 05/25/2016 at 16:31 Cardiac Echo Impression Echocardiogram Report Name: NANCY CASSIDY AStudy Date : 05/27/2016 Height: 65 in Hospital Exam Location: [facility] Weight: 154 lb Gender: Other BSA: 1.8 m2 : 1930 Age: 85 yrs BP: 139/88 mmHg Reason For Study: Edema Ordering Physician: Performed By: [facility] Interpretation Summary The left ventricle is normal in size.The ejection fraction is estimated to be 55-60%. The right ventricle is mild to moderately dilated. There is a pacemaker lead in the right ventricle. Right ventricular systolic function is mild to moderately reduced. There is moderate tricuspid regurgitation. The right ventricular systolic pressure is estimated at 66 mmHg assuming a right atrial pressure of 15 mm Hg. There is severe pulmonary hypertension. The patient was in atrial fibrillation with heart rates between 78-133 bpm during the exam Brief History This is an 85 year old female with a history of atrial fibrillation, GI bleed, hypertension presenting to the emergency department due to progressively worsening shortness of breath that began one year ago. Associated symptoms include chest pain, malaise, and lightheadedness and dizziness with minimal exertion. Pt was called to [facility] from Dr. Billings's office, informed of low blood count, and was told to visit the ED. the patient reported a few episodes of black stools but did not have bowel movement the day of admission. The patient denied diarrhea, constipation, vomiting, nausea, headache, or abdominal pain at this time. Pt has been taking 325 mg ASA daily. The patient was admitted to the hospital service for further evaluation and treatment. Hospital Course This is an 85 year old female with a history of atrial fibrillation, GI bleed, hypertension presenting to the emergency department due to progressively worsening shortness of breath that began one year ago. Associated symptoms include chest pain, malaise, and lightheadedness and dizziness with minimal exertion. Pt was called to [facility] from Dr. Billings's office, informed of low blood count, and was told to visit the ED. the patient reported a few episodes of black stools but did not have bowel movement the day of admission. The patient denied diarrhea, constipation, vomiting, nausea, headache, or abdominal pain at this time. Pt has been taking 325 mg ASA daily. The patient was admitted to the hospital service for further evaluation and treatment. # Acute blood loss anemia secondary to GI bleeding which had become symptomatic - Appreciate GI consult by Dr. Mendoza - Patient underwent EGD and colonoscopy. And the results are as follows: "IMPRESSION: 1. Small internal hemorrhoids. 2. Sigmoid diverticulosis. 3. Large hiatal hernia. RECOMMENDATIONS: 1. Await pathology results. 2. Outpatient small bowel series. 3. Okay to start clear liquid diet. Advance as tolerated. 4. Okay to discharge home from a GI standpoint." - Patient has been started on Protonix which was increased to 40 mg IV twice a day as recommended by Dr. Mendoza. Will decrease to once a day. - She was transfused 2 units of packed red blood cells - We will continue monitor blood counts closely. - Patient has a history of a GI bleed back in October 2010 ( EGD : Gastritis due to ASA) - History of endoscopy per [facility]: - 2011: EGD- Nonobstructing Schatzki's ring at GE junction, large incarcerated hiatal hernia without evidence gastric ulcerations; mild diffuse gastritis noted; Biopsies NEGATIVE for H pylori - 2011: Colonoscopy- moderate diverticulosis - 2012: EGD- no source bleeding identified # Chronic paroxysmal atrial fibrillation - Patient has a pacemaker placed she states that she has 4 wires now is to previous wires were causing electrical shocks and she had placement of 2 new wires. - Patient has a history of GI bleeding and was not on any anticoagulation until recently when she was placed on aspirin. - History of tachybradycardia syndrome - We will hold all anticoagulation at this time due to GI bleed # Hypertension - Controlled at present time off amlodipine discontinued yesterday due to low blood pressure. - We will continue to monitor closely at this time # Lower extremity edema - This is likely due to third spacing from low intravascular oncotic pressure due to anemia - However, will check echocardiogram to rule out evidence of congestive heart failure - Lasix has been ordered 1 yesterday after second unit of blood was transfused. Will into new to monitor Disposition: Patient will likely be hospitalized for another 48 hours for evaluation and management of the above problems. Exam Vital Signs (Last) Date Time Temp Pulse Resp B/P Pulse Ox O2 Delivery O2 Flow Rate FiO2 05/28/16 12:58 107 117/75 98 Room Air 05/28/16 09:04 36.7 20 05/27/16 14:41 4 Exam General: Patient is in no apparent distress. He is very anxious as to whether her insurance will cover her hospitalization and any procedures associated with it. HEENT: Head is atraumatic and normocephalic. Eyes: Pupils are equally round and reactive to light and accommodation. Extraocular muscles are intact. Sclera are white, anicteric. Subconjunctival mucosa is pale. Ears and nose are unremarkable. Oropharynx: There is no mucosal lesions, there is no thrush, there is no pharyngitis. There is some mucosal pallor Neck: Is supple, there are no nodes, or masses or tenderness. Chest: Is clear to auscultation and percussion. There are no rales, rhonchi, wheezes or rubs. Heart: Rate, rhythm is regular. There is no murmur, rub or gallop. Abdomen: Good bowel sounds are present. Abdomen is soft, nontender, no organomegaly or masses were appreciated. Extremities: Are symmetrical and well perfused. There is no edema, there is no cellulitis, no rash. Neurologic: There are no focal neurological deficits. Cranial nerves II through XII are intact. There are no sensory or motor deficits. Psychiatric: Patients mood is calm and shows no sign of agitation. Genital: Deferred Rectal: Deferred Test 05/25/16 16:00 05/27/16 06:03 05/27/16 07:13 05/28/16 07:10 Hold Purple Top Tube Received (Received) Hold Blue Top Tube Received (Received) Troponin T < 0.010ug/L (0.0-0.011) Hold Aston Top Tube Received (Received) Hold [place] Top Tube Received (Received) Pro-B-Type Natriuretic Peptide 3364pg/mL (0-738) Triglycerides Level 73mg/dL (0-149) Cholesterol Level 107mg/dL (100-199) LDL Cholesterol, Calculated 48.400mg/dL (0-99) VLDL Cholesterol 14.600mg/dL HDL Cholesterol 44mg/dL (>39) Cholesterol/HDL Ratio 2.43 (0.0-4.4) Urine Color Yellow (YELLOW) Urine Appearance Hazy (CLEAR,HAZY) Urine pH 5.0 (5.0-8.0) Urine Specific [place] 1.030 (1.003-1.035) Urine Protein Negativemg/dL (NEG,TRACE) Urine Glucose (UA) Negativemg/dL (NEGATIVE) Urine Ketones Tracemg/dL (NEGATIVE) Urine Occult Blood Negative (NEGATIVE) Urine Nitrite Negative (NEGATIVE) Urine Bilirubin Negative (NEGATIVE) Urine Urobilinogen Normalmg/dL (NORMAL) Urine Leukocyte Esterase Negative (NEGATIVE) Urine RBC 0-2/hpf (0-2) Urine WBC 0-5/hpf (0-5) Urine Epithelial Cells Occasional/hpf (NONE-MOD) Urine Crystals None seen (NONE SEEN) Urine Bacteria Moderate/hpf (NONE-FEW) Urine Hyaline Casts Occasional/lpf (NONE) Urine Granular Casts None seen (NONE SEEN) Urine Waxy Casts None seen (NONE SEEN) Urine Red Blood Cell Casts None seen (NONE SEEN) Urine White Blood Cell Casts None seen (NONE SEEN) Urine Mucus None seen (None Seen) Urine Trichomonas None seen (NONE SEEN) Urine Yeast None (NONE SEEN) Urinalysis Comment None White Blood Count 6.7th/mm3 (3.8-10.1) Red Blood Count 3.56mil/mm3 (3.90-5.20) Hemoglobin 7.8g/dL (12.0-15.6) Hematocrit 26.9% (35.0-46.0) Mean Corpuscular Volume 75.6fL (81-100) Mean Corpuscular Hemoglobin 21.9pg (27.0-35.0) Mean Corpuscular Hemoglobin Concent 29.0% (32.0-37.0) Red Cell Distribution Width 23.0% (12.3-15.4) Platelet Count 278bil/L (150-400) Neutrophils (%) (Auto) 72.0% (40-74) Lymphocytes (%) (Auto) 12.8% (14-46) Monocytes (%) (Auto) 12.6% (4-12) Eosinophils (%) (Auto) 1.8% (0-5) Basophils (%) (Auto) 0.5% (0-3) Hematology Comments Sodium Level 141mEq/L (134-144) Potassium Level 4.2mEq/L (3.5-5.2) Chloride Level 103mEq/L (97-108) Carbon Dioxide Level 24mmol/L (18-29) Blood Urea Nitrogen 23mg/dL (8-27) Creatinine 1.07mg/dL (0.57-1.00) Estimat Glomerular Filtration Rate 70mL/min (>59) Glucose Level 137mg/dL (60-99) Calcium Level 8.6mg/dL (8.5-10.1) Magnesium Level 2.0mg/dL (1.6-2.6) Total Bilirubin 1.6mg/dL (0.0-1.2) Aspartate Amino Transf (AST/SGOT) 21U/L (0-50) Alanine Aminotransferase (ALT/SGPT) 13U/L (0-32) Alkaline Phosphatase 44U/L (25-165) Total Protein 6.0g/dL (6.4-8.4) Albumin 3.8g/dL (3.4-5.0) Microbiology Results Name: NANCY CASSIDY Age/Sex: 85/F Attend Dr: Ahmet Schneider MD Acct: [id number] Unit: [id number] Status: ADM IN Location: [facility] [place] 3010-1 Re05/25/16 Disch: Specimen: [id number] Collected: 05/26/16 Status: COMP Req#: [id number] Received: 05/26/16 Source: STOOL Sp Desc : Subm Dr: Anthony Ulloa MD Ordered: WFOBT Comments: Collected by Nurse/Unit? Y/N Y Comment: x1 suspected GI bleed Procedure Result Verified Site Microbiology [facility] OCCULT BLOOD IMMUNOCHEM Final 05/26/16 OCCULT BLD IMMUNOCHEMICAL NEGATIVE REFERENCE INTERVAL NEGATIVE Discharge Medications Discharge Medications Ascorbate Calcium (Vitamin C) 500 Mg Tablet 500 MG PO DAILY (Reported) Flecainide Acetate (Flecainide Acetate) 50 Mg Tablet 50 MG PO BID (Reported) Pantoprazole DR (Pantoprazole DR) 20 Mg Tablet.dr 20 MG PO DAILYAC Prescribed by: REJI ULLOA MD Vit C/Vit E/Lutein/Min/Marshall-3 (Ocuvite Softgel) 1 Each Capsule 1 EACH PO DAILY (Reported) As needed Calcium Carb/Mag Hydrox/Simeth (Antacid Multi-Sym Tab Chew) 1 Each Tab.chew 1 EACH PO DAILY PRN PRN For Dyspepsia or Heartburn (Reported) Followup Plan Disposition: Patient is being discharged home with her son Efe. Discharge Diet: Heart Healthy Discharge Activity: No restrictions (Patient may resume usual activities gradually as tolerated.) Follow-up Provider: Brittani Billings MD Follow-up with PCP in: 2 weeks Provider: Ahmet Mendoza MD Follow-up in: 2 weeks (Folllow up for biopsy report) Time spent Time spent on discharging this patient was greater than 35 minutes: over half of which was involved in counseling and coordination of care. Anthony Ulloa MD May 29, 2016 00:36
--- NOTE | 2016-05-29 15:43 | PATH ---
SURGICAL PATHOLOGY Attending Physician:Ahmet Mendoza MD CASE STATUS: Signed Out PATIENT NAME: NANCY CASSIDY PID: [id number] : 1930 DATE COLLECTED:05/27/2016 00:00 SPECIMEN: Duodenum, Biopsy CLINICAL HISTORY: 1.DUODENAL BIOPSY FINAL DIAGNOSIS: 1.DUODENUM BIOPSY:FRAGMENTS OF SMALL BOWEL MUCOSA WITH FOCAL CHANGES CONSISTENT WITH CHRONIC DUODENITIS. Negative for evidence of celiac disease. Negative for dysplasia and malignancy. ICD10 code K29.80 GROSS DESCRIPTION: The specimen is received in one formalin filled container labeled with the patient's name, sublabeled "duodenal" and consists of 2 portions of tissue which aggregate to 0.4 x 0.4 x 0.2 CM. The specimen is entirely submitted in one cassette. 05/28/2016 [facility] MICRO DESCRIPTION: See diagnosis. ICD-9 CODES: CPT CODES: 1: 83993 Electronically Signed Out Alvino Koch MD [facility] Pathology [facility] [address], [place] [address] Technical component performed at [facility], [facility] [address], [place], [address]
== END 2016-05-28 13:25 | disposition home or self-care (01) | DRG 378 ==
LOC: SED 15:53 → MPC 18:59
PROVIDERS: ADMIT Internal Medicine; ATTEND Internal Medicine
PROC: 30233N1 Transfusion of Nonautologous Red Blood Cells into Peripheral Vein, Percutaneous Approach (ICD-10-PCS; 2016-05-25)
PROC: 0DJD8ZZ Inspection of Lower Intestinal Tract, Via Natural or Artificial Opening Endoscopic (ICD-10-PCS; 2016-05-27)
PROC: 0DB98ZX Excision of Duodenum, Via Natural or Artificial Opening Endoscopic, Diagnostic (ICD-10-PCS; principal; 2016-05-27 11:45)
DX: K92.1 Melena (principal); D62 Acute posthemorrhagic anemia; Z79.82 Long term (current) use of aspirin; Z95.0 Presence of cardiac pacemaker; I48.0 Paroxysmal atrial fibrillation; I48.2 Chronic atrial fibrillation; R60.0 Localized edema